=== PATIENT | female | born 1955 | race Two or more races ===

== ENCOUNTER 2023-12-27 12:00 | Inpatient (IN) | payer OTHER ==
[~2023-12-27] VITALS: Ht 152.4 cm; Wt 50.8 kg
[2023-12-27] MEDS ORDERED: CLONAZEPAM1 MG PO (13:12)
[2023-12-27] MEDS ORDERED: SYNTHROID88 MCG PO (13:12)
[2023-12-27] MEDS ORDERED: BENADRYL25 MG PO (13:13)
[2023-12-27] MEDS ORDERED: CLARITIN5 MG PO (13:13)
[2024-01-01] MEDS ORDERED: ATORVASTATIN CA10 MG (11:13)
[2024-01-01] MEDS ORDERED: MAXIMUM D3325 MCG (11:13)
[2024-01-01] MEDS ORDERED: GABAPENTIN300 M2 (11:34)
[2024-01-01] MEDS ORDERED: CLONAZEPAM0.5 MG (11:34)
[2024-01-01] MEDS ORDERED: OMEPRAZOLE40 MG (11:35)
[2024-01-01] MEDS ORDERED: FLONASE16 GM (11:35)
[2024-01-01] MEDS ORDERED: CEFTRIAXONE SODIUM 2,000 MG VIAL IV ONE (14:15)
[2024-01-01] MEDS ORDERED: METRONIDAZOLE/SODIUM CHLORIDE 500 MG/100 ML PIGGYBACK IV ONE (14:15)
[2024-01-01] MEDS ORDERED: BUPIVACAINE HCL 30 ML VIAL IJ ONE (14:15)
[2024-01-01] MEDS ORDERED: LIDOCAINE HCL 1%/EPINEPHRINE 20ML VIAL IJ ONE (14:15)
[2024-01-01] MEDS ORDERED: THROMBIN,HU/FIBRINOGEN/CALCIUM 10 ML SYRINGE TOP ONE (18:00)
[2024-01-01] MEDS ORDERED: VISTASEAL DUAL APPICATOR 1 EACH APPL TOP ONE (18:00)
[2024-01-01] MEDS ORDERED: MORPHINE SULFATE 4 MG/ML CARTRIDGE IV PRN (19:00)
[2024-01-01] MEDS ORDERED: DEXTROSE 50 % IN WATER 0.5 G/ML DISP.SYRIN IV PRN (19:00)
[2024-01-01] MEDS ORDERED: OxyCODONE HCL 5 MG TABLET (ROXICODONE) PO PRN (19:00)
[2024-01-01] MEDS ORDERED: ONDANSETRON HCL 2 MG/ML VIAL IV PRN (19:00)
[2024-01-01] MEDS ORDERED: 0.9 % SODIUM CHLORIDE 1,000 ML IV SCH (19:00)
[2024-01-01] MEDS ORDERED: CHLORHEXIDINE GLUCONATE 120 ML BOTTLE TOP ONE (19:15)
[2024-01-01] MEDS ORDERED: ACETAMINOPHEN 500 MG GEL..CAP PO SCH (20:00)
[2024-01-01] MEDS ORDERED: FAMOTIDINE/PF 20 MG/2 ML VIAL IV PUSH SCH (21:00)
[2024-01-01 23:02] LABS: HEMATOCRIT 36.5 % (36.0-45.00); HEMOGLOBIN 12.7 g/dL (12.0-15.00); MEAN CELL VOLUME 95.1 fL (80.00-100.00); MEAN CORPUSCULAR HEMOGLOBIN 33.1 pg (27.00-32.0); MEAN CORPUSCULAR HGB CONC 34.8 g/dl (32.0-36.0); PLATELET COUNT 235 K/uL (150-450); RED BLOOD COUNT 3.84 M/uL (4.00-6.00)
[2024-01-01 23:26] LABS: ALBUMIN 3.3 gm/dL (3.4-5.0); CALCIUM 8.3 mg/dL (8.5-10.1); CREATININE SERUM 0.63 mg/dL (0.55-1.02); GFR 93.69; MAGNESIUM 1.5 mg/dL (1.8-2.4); PHOSPHOROUS 2.6 mg/dL (2.5-4.9); POTASSIUM 3.95 mEq/L (3.5-5.1)
[2024-01-02] MEDS ORDERED: GABAPENTIN 300 MG CAPSULE PO SCH (01:00)
[2024-01-02] MEDS ORDERED: METRONIDAZOLE/SODIUM CHLORIDE 500 MG/100 ML PIGGYBACK IV SCH (01:00)
[2024-01-02] MEDS ORDERED: LEVOTHYROXINE PO SCH (06:00)
[2024-01-02 07:47] LABS: HEMOGLOBIN 12.3 g/dL (12.0-15.00); MEAN CELL VOLUME 94.3 fL (80.00-100.00); MEAN CORPUSCULAR HEMOGLOBIN 33.1 pg (27.00-32.0); MEAN CORPUSCULAR HGB CONC 35.1 g/dl (32.0-36.0); PLATELET COUNT 243 K/uL (150-450); RED BLOOD COUNT 3.71 M/uL (4.00-6.00); RED CELL DISTRIBUTION WIDTH 12.8 % (11.5-14.5)
[2024-01-02] MEDS ORDERED: HYOSCYAMINE SULFATE 0.125 MG TAB.SUBL SL SCH (09:00)
[2024-01-02 09:02] LABS: ALBUMIN 3.2 gm/dL (3.4-5.0); CALCIUM 8.1 mg/dL (8.5-10.1); CREATININE SERUM 0.65 mg/dL (0.55-1.02); GFR 90.37; MAGNESIUM 1.6 mg/dL (1.8-2.4); PHOSPHOROUS 2.7 mg/dL (2.5-4.9); POTASSIUM 3.56 mEq/L (3.5-5.1)
[2024-01-02] MEDS ORDERED: MAGNESIUM SULFATE IN WATER 50 ML IV NR (11:15)
[2024-01-02] MEDS ORDERED: LORATADINE 10 MG TABLET PO SCH (11:51)
[2024-01-02] MEDS ORDERED: POLYETHYLENE GLYCOL 3350 17 GM BLIST.PACK PO SCH (17:00)
[2024-01-02] MEDS ORDERED: ENOXAPARIN SODIUM 40 MG/0.4 ML SYRINGE SUBCUTANEO SCH (17:00)
[2024-01-03] MEDS ORDERED: PATIENTS OWN MEDICATION (MEDICAMENTO EN PISO) PO SCH (06:00)
[2024-01-03 06:44] LABS: HEMATOCRIT 29.9 % (36.0-45.00); HEMOGLOBIN 10.7 g/dL (12.0-15.00); MEAN CELL VOLUME 93.9 fL (80.00-100.00); MEAN CORPUSCULAR HEMOGLOBIN 33.5 pg (27.00-32.0); MEAN CORPUSCULAR HGB CONC 35.7 g/dl (32.0-36.0); PLATELET COUNT 211 K/uL (150-450); RED BLOOD COUNT 3.18 M/uL (4.00-6.00); RED CELL DISTRIBUTION WIDTH 13.1 % (11.5-14.5)
[2024-01-03 07:17] LABS: CALCIUM 7.6 mg/dL (8.5-10.1); CREATININE SERUM 0.54 mg/dL (0.55-1.02); GFR 111.94; MAGNESIUM 2.4 mg/dL (1.8-2.4); POTASSIUM 3.27 mEq/L (3.5-5.1)
[2024-01-03 07:39] LABS: PHOSPHOROUS 1.4 mg/dL (2.5-4.9)
[2024-01-03] MEDS ORDERED: KETOROLAC TROMETHAMINE 30 MG VIAL IV ONE (07:45)
[2024-01-03] MEDS ORDERED: ENOXAPARIN SODIUM 40 MG/0.4 ML SYRINGE SUBCUTANEO SCH (09:00)
[2024-01-03] MEDS ORDERED: TAMSULOSIN HCL 0.4 MG CAP PO SCH (09:00)
[2024-01-03] MEDS ORDERED: POTASSIUM CHLORIDE 20MEQ/100ML H2O PB IV NR (10:40)
[2024-01-03] MEDS ORDERED: PANTOPRAZOLE SODIUM 40 MG/VIAL VIAL IV SCH (11:45)
[2024-01-03] MEDS ORDERED: POTASSIUM PHOS,M-BASIC-D-BASIC 15 MM in 0.9 % SODIUM CHLORIDE 250 ML IV NR (12:00)
[2024-01-04] MEDS ORDERED: MORPHINE SULFATE 4 MG/ML CARTRIDGE IV PRN (09:30)
[2024-01-04] MEDS ORDERED: HYOSCYAMINE0.125 M1 SL (11:18)
[2024-01-04] MEDS ORDERED: TRAM1TAB98 PO (11:18)
[2024-01-04] MEDS ORDERED: PEPCID AC20 MG PO (11:19)
== END 2024-01-04 13:49 | disposition home or self-care (01) | DRG 331 ==
LOC: O/R 01-01 07:37 → SURH 01-01 12:15 → SURG 01-02 03:03
PROVIDERS: Internal Medicine Geriatric Medicine; ADMIT Surgery; ATTEND Surgery
PROC: 0DTP4ZZ Resection of Rectum, Percutaneous Endoscopic Approach (ICD-10-PCS; 2024-01-01)
PROC: 0DTN4ZZ Resection of Sigmoid Colon, Percutaneous Endoscopic Approach (ICD-10-PCS; 2024-01-01)
PROC: 0DBQ4ZZ Excision of Anus, Percutaneous Endoscopic Approach (ICD-10-PCS; 2024-01-01)
PROC: 07BC4ZZ Excision of Pelvis Lymphatic, Percutaneous Endoscopic Approach (ICD-10-PCS; 2024-01-01)
PROC: 0D1N4Z4 Bypass Sigmoid Colon to Cutaneous, Percutaneous Endoscopic Approach (ICD-10-PCS; principal; 2024-01-01 18:15)
DX: C20 Malignant neoplasm of rectum (principal); R59.0 Localized enlarged lymph nodes

== ENCOUNTER 2024-01-11 18:09 | Emergency (ER) | payer OTHER ==
[~2024-01-11] VITALS: Ht 152.4 cm; Wt 50.3 kg
[~2024-01-11 18:09] MED LIST: ATORVASTATIN CA10 MG; BENADRYL25 MG PO; CLARITIN5 MG PO; CLONAZEPAM0.5 MG; CLONAZEPAM1 MG PO; FLONASE16 GM; GABAPENTIN300 M2; HYOSCYAMINE0.125 M1 SL; MAXIMUM D3325 MCG; OMEPRAZOLE40 MG; PEPCID AC20 MG PO; SYNTHROID88 MCG PO; TRAM1TAB98 PO
[2024-01-11] MEDS ORDERED: CEFTRIAXONE SODIUM 1,000 MG VIAL IM STA (18:28)
[2024-01-11] MEDS ORDERED: CEFTRIAXONE SODIUM 1,000 MG VIAL ONE (18:30)
[2024-01-11] MEDS ORDERED: RINGERS SOLUTION,LACTATED 1,000 ML IV STA (18:43)
[2024-01-11] MEDS ORDERED: ONDANSETRON HCL 2 MG/ML VIAL IV STA (18:43)
[2024-01-11] MEDS ORDERED: FAMOTIDINE/PF 20 MG/2 ML VIAL IV PUSH STA (18:44)
[2024-01-11] MEDS ORDERED: ONDANSETRON HCL 2 MG/ML VIAL ONE (18:50)
[2024-01-11] MEDS ORDERED: FAMOtidine 200mg/20ml VIAL ONE (18:51)
[2024-01-11 19:19] LABS: HEMATOCRIT 33.1 % (36.0-45.00); HEMOGLOBIN 11.6 g/dL (12.0-15.00); MEAN CELL VOLUME 92.9 fL (80.00-100.00); MEAN CORPUSCULAR HEMOGLOBIN 32.7 pg (27.00-32.0); MEAN CORPUSCULAR HGB CONC 35.2 g/dl (32.0-36.0); PLATELET COUNT 567 K/uL (150-450); RED BLOOD COUNT 3.56 M/uL (4.00-6.00); RED CELL DISTRIBUTION WIDTH 13.8 % (11.5-14.5)
[2024-01-11 19:20] LABS: URINE APPEARANCE Clear; URINE BILIRRUBIN Negative (NEGATIVE); URINE BLOOD Trace; URINE COLOR Yellow; URINE GLUCOSE Negative (NEGATIVE); URINE LEUKOCYTE Negative; URINE NITRATE Negative; URINE PROTEIN Negative (NEGATIVE); URINE UROBILINOGEN 0.2 E.U./dl
[2024-01-11 19:21] LABS: URINE EPITHELIAL CELLS 4.4 uL (0.0-38.8); URINE RBC 15.5 uL (0.0-20.8); URINE WBC 3.8 uL (0.0-23.2)
[2024-01-11 19:36] LABS: CALCIUM 9.1 mg/dL (8.5-10.1); CREATININE SERUM 0.78 mg/dL (0.55-1.02); GFR 73.01; POTASSIUM 3.96 mEq/L (3.5-5.1)
== END 2024-01-11 21:51 | disposition home or self-care (01) ==
LOC: ER 18:09
PROVIDERS: Emergency Medicine
DX: R11.0 Nausea (principal); T50.905A Adverse effect of unspecified drugs, medicaments and biological substances, initial encounter; Z91.013 Allergy to seafood
CPT/HCPCS: 36415; 96365; 96372; 99282; J0696; J2405; J3490

== ENCOUNTER 2024-01-15 17:53 | Emergency (ER) | payer OTHER ==
[~2024-01-15] VITALS: Ht 152.4 cm; Wt 50.3 kg
[2024-01-15] MEDS ORDERED: 0.9 % SODIUM CHLORIDE 500 ML IV ONE (20:00)
[2024-01-15] MEDS ORDERED: ONDANSETRON HCL 2 MG/ML VIAL ONE (20:15)
[2024-01-15] MEDS ORDERED: ONDANSETRON HCL 2 MG/ML VIAL IV ONE (20:15)
[2024-01-15] MEDS ORDERED: MULTIVIT INFUSN,ADULT 4,VIT K 10 ML VIAL IV ONE (20:15)
[2024-01-15] MEDS ORDERED: FAMOtidine 200mg/20ml VIAL ONE (20:15)
[2024-01-15] MEDS ORDERED: FAMOTIDINE/PF 20 MG/2 ML VIAL IV ONE (20:15)
[2024-01-15 20:56] LABS: HEMATOCRIT 34.9 % (36.0-45.00); HEMOGLOBIN 12.4 g/dL (12.0-15.00); MEAN CELL VOLUME 94.5 fL (80.00-100.00); MEAN CORPUSCULAR HEMOGLOBIN 33.5 pg (27.00-32.0); MEAN CORPUSCULAR HGB CONC 35.4 g/dl (32.0-36.0); PLATELET COUNT 612 K/uL (150-450); RED CELL DISTRIBUTION WIDTH 13.4 % (11.5-14.5)
[2024-01-15 21:17] LABS: ALBUMIN 3.7 gm/dL (3.4-5.0); BILIRUBIN TOTAL 0.34 mg/dL (0.3-1.2); CREATININE SERUM 0.71 mg/dL (0.55-1.02); GFR 81.38; GLOBULINA 3.9 G/DL (2.4-3.5); MAGNESIUM 2.5 mg/dL (1.8-2.4); PHOSPHOROUS 2.7 mg/dL (2.5-4.9); POTASSIUM 3.63 mEq/L (3.5-5.1); TOTAL PROTEIN 7.6 gm/dL (6.4-8.2)
[2024-01-15] MEDS ORDERED: APETIGEN L790 MG/15 PO (22:21)
== END 2024-01-15 22:34 ==
LOC: ER 17:54
PROVIDERS: Nurse Practitioner Family
DX: R53.1 Weakness (principal); R11.0 Nausea; E03.8 Other specified hypothyroidism; Z20.822 Contact with and (suspected) exposure to COVID-19; Z91.013 Allergy to seafood; Z91.041 Radiographic dye allergy status
CPT/HCPCS: 36415; 96365; 99282; J2405; J3490 ×2; J7042

== ENCOUNTER 2024-02-03 14:49 | Emergency (ER) | payer OTHER ==
[~2024-02-03] VITALS: Ht 152.4 cm; Wt 49.9 kg
[~2024-02-03 14:49] MED LIST changes: +APETIGEN L790 MG/15 PO
[2024-02-03] MEDS ORDERED: MEPERIDINE HCL 25 MG/ML AMPUL IM STA (16:46)
== END 2024-02-03 17:59 | disposition home or self-care (01) ==
LOC: ER 14:50
DX: K62.89 Other specified diseases of anus and rectum (principal); Z91.041 Radiographic dye allergy status; Z91.013 Allergy to seafood
CPT/HCPCS: 96372; 99282; J2180

== ENCOUNTER 2024-10-22 13:16 | Emergency (ER) | payer OTHER ==
[~2024-10-22] VITALS: Ht 152.4 cm; Wt 48.5 kg
[2024-10-22] MEDS ORDERED: 0.9 % SODIUM CHLORIDE 1,000 ML IV SCH (16:30)
[2024-10-22] MEDS ORDERED: KETOROLAC TROMETHAMINE 30 MG VIAL IV ONE (16:30)
[2024-10-22] MEDS ORDERED: KETOROLAC TROMETHAMINE 30 MG VIAL ONE (16:33)
[2024-10-22 17:05] LABS: HEMATOCRIT 40.3 % (36.0-45.00); MEAN CELL VOLUME 93.8 fL (80.00-100.00); MEAN CORPUSCULAR HEMOGLOBIN 32.7 pg (27.00-32.0); MEAN CORPUSCULAR HGB CONC 34.9 g/dl (32.0-36.0); PLATELET COUNT 252 K/uL (150-450); RED BLOOD COUNT 4.29 M/uL (4.00-6.00); RED CELL DISTRIBUTION WIDTH 13.4 % (11.5-14.5)
[2024-10-22] MEDS ORDERED: BARIUM SULFATE 450 ML ORAL.SUSP PO ONE (17:13)
[2024-10-22 17:16] LABS: PH,URINE 6.5 (5.0-8.0); URINE APPEARANCE Cloudy; URINE BILIRRUBIN Negative (NEGATIVE); URINE BLOOD Moderate; URINE COLOR Yellow; URINE GLUCOSE Negative (NEGATIVE); URINE KETONE Negative (NEGATIVE); URINE LEUKOCYTE Small; URINE NITRATE Negative; URINE PROTEIN Negative (NEGATIVE); URINE UROBILINOGEN 0.2 E.U./dl
[2024-10-22 17:20] LABS: URINE BACTERIA 45.2 uL (0.0-1933); URINE EPITHELIAL CELLS 37.6 uL (0.0-38.8); URINE RBC 145.8 uL (0.0-20.8); URINE WBC 101.7 uL (0.0-23.2)
[2024-10-22 17:25] LABS: CALCIUM 8.8 mg/dL (8.5-10.1); CREATININE SERUM 0.8 mg/dL (0.55-1.02); GFR 70.91; POTASSIUM 3.47 mEq/L (3.5-5.1)
[2024-10-22 17:32] LABS: URINE CAST 0.14 uL (0.0-1.40)
== END 2024-10-22 21:57 | disposition home or self-care (01) ==
LOC: ER 13:16
PROVIDERS: Emergency Medicine
DX: R10.9 Unspecified abdominal pain (principal); C18.9 Malignant neoplasm of colon, unspecified; E78.00 Pure hypercholesterolemia, unspecified; I10 Essential (primary) hypertension; Z93.3 Colostomy status; Z91.013 Allergy to seafood
CPT/HCPCS: 36415; 74177; Q9965